=== PATIENT | male | born 1990 | race Caucasian/White ===

== ENCOUNTER 2017-12-21 21:55 | Inpatient (IN) | payer MEDICAID ==
[~2017-12-21] VITALS: Ht 167.6 cm; Wt 98.0 kg
[2017-12-22] MEDS ORDERED: VANCOMYCIN 1 G PREMIX 200 ML IV ONE (00:45)
[2017-12-22] MEDS ORDERED: SODIUM CHLORIDE 0.9% 1,000 ML IV ONE (00:45)
[2017-12-22] MEDS ORDERED: KETOROLAC 30MG/ML VIAL IV ONE (00:45)
[2017-12-22 01:13] LABS: BASOPHILS % 0.6 % (0.0-2.0); EOSINOPHILS % 2.7 % (0.0-5.0); HEMATOCRIT. 38.2 % (42.0-52.0); HEMOGLOBIN. 12.9 g/dL (14.0-18.0); LYMPHOCYTES % 24.2 % (20.0-50.0); MEAN CORPUSCULAR HEMOGLOBIN 31.1 pg (28.0-32.0); MEAN CORPUSCULAR VOLUME 91.8 fL (80.0-94.0); MEAN PLATELET VOLUME 7.3 fl (7.4-10.4); MONOCYTES % 11.1 % (2.0-8.0); NEUTROPHILS % 61.4 % (40.0-76.0); PLATELET 379 x1000/uL (130-400); RED BLOOD CELL COUNT 4.16 mill/uL (4.7-6.1); RED CELL DISTRIBUTION WIDTH 13.4 % (11.6-14.6)
[2017-12-22 01:22] LABS: INR 0.9; PROTHROMBIN TIME 9.9 sec (9.4-11.6)
[2017-12-22 01:29] LABS: CHLORIDE 105 mEq/L (98-107)
[2017-12-22] MEDS ORDERED: MORPHINE SULFATE 4 MG/ML CPJ (NOT FOR IM USE) IV ONE ×2 (02:00→04:30)
[2017-12-22 08:25] VITALS: BP 108/71
[2017-12-22] MEDS ORDERED: GABA-290 PO (10:24)
[2017-12-22 10:25] VITALS: BP 108/71
[2017-12-22 12:00] VITALS: BP 115/74
[2017-12-22] MEDS ORDERED: ACETAMINOPHEN 325MG TABLET PO PRN (12:30)
[2017-12-22] MEDS ORDERED: ONDANSETRON HCL 4MG/2ML INJ IV PRN (12:30)
[2017-12-22] MEDS ORDERED: CLONIDINE 0.1MG TABLET PO PRN (12:30)
[2017-12-22] MEDS ORDERED: IPRATROPIUM/ALBUTEROL 0.5-3(2.5)MG/3ML NEB INH PRN (12:30)
[2017-12-22] MEDS ORDERED: VANCOMYCIN 1 G PREMIX 200 ML IV SCH (12:30)
[2017-12-22] MEDS ORDERED: MEDICATION NOT ON FORMULARY EA (Gabapentin 1 TAB) PO SCH (13:00)
[2017-12-22] MEDS: HYDROCODONE/ACETAMINOPHEN 5/325MG TABLET PO PRN ×2 (13:25→20:28)
[2017-12-22] MEDS: GABAPENTIN 300MG CAPSULE PO SCH ×2 (13:25→17:43)
[2017-12-22] MEDS ORDERED: VANCOMYCIN 1,000 MG in DEXT 5% WATER 250 ML IV SCH (14:30)
[2017-12-22] MEDS ORDERED: PNEUMOCOCCAL 23-VAL P-SAC VAC 0.5 ML IM ONE (15:30)
[2017-12-22] MEDS ORDERED: INFLUENZA VIRUS VACCINE(AFLURIA) 0.5ML SYR IM ONE (15:30)
[2017-12-22] MEDS: VANCOMYCIN 1,000 MG in DEXT 5% WATER 250 ML IV SCH (15:58)
[2017-12-22 16:00] VITALS: BP 118/71
[2017-12-22] MEDS ORDERED: GABAPENTIN 300MG CAPSULE PO SCH (17:00)
[2017-12-22 20:00] VITALS: BP 123/86
[2017-12-22] MEDS: MORPHINE SULFATE 4 MG/ML CPJ (NOT FOR IM USE) IV PRN (23:13)
[2017-12-23] VITALS: BP 132/85
[2017-12-23] MEDS: VANCOMYCIN 1,000 MG in DEXT 5% WATER 250 ML IV SCH (02:16)
[2017-12-23 04:00] VITALS: BP 117/71
[2017-12-23] MEDS: MORPHINE SULFATE 4 MG/ML CPJ (NOT FOR IM USE) IV PRN ×3 (04:15→22:12)
[2017-12-23 05:46] LABS: BASOPHILS % 0.6 % (0.0-2.0); EOSINOPHILS % 2.7 % (0.0-5.0); HEMOGLOBIN. 13.8 g/dL (14.0-18.0); LYMPHOCYTES % 22.7 % (20.0-50.0); MEAN CORPUSCULAR HEMOGLOBIN 31.6 pg (28.0-32.0); MEAN CORPUSCULAR VOLUME 91.3 fL (80.0-94.0); MEAN PLATELET VOLUME 7.4 fl (7.4-10.4); PLATELET 392 x1000/uL (130-400); RED BLOOD CELL COUNT 4.38 mill/uL (4.7-6.1); RED CELL DISTRIBUTION WIDTH 13.1 % (11.6-14.6)
[2017-12-23 06:28] LABS: CHLORIDE 102 mEq/L (98-107); HDL CHOLESTEROL 40 mg/dL (40-59); LDL CHOLESTEROL 103 mg/dL (5-100)
[2017-12-23 08:00] VITALS: BP 110/79
[2017-12-23] MEDS: GABAPENTIN 300MG CAPSULE PO SCH ×3 (10:05→18:00)
[2017-12-23 12:00] VITALS: BP 99/63
[2017-12-23] MEDS ORDERED: LIDOCAINE HCL 1%/EPI 1:200,000 30 ML VIAL IJ NR (15:00)
[2017-12-23 16:00] VITALS: BP 128/97
[2017-12-23] MEDS: HYDROCODONE/ACETAMINOPHEN 5/325MG TABLET PO PRN (18:00)
[2017-12-23 20:00] VITALS: BP 114/78
[2017-12-23] MEDS: MUPIROCIN 2% OINT 22GM TOP SCH (20:57)
[2017-12-23] MEDS: CHLORHEXIDINE GLUCONATE 4% EXTERNAL USE TOP SCH (20:57)
[2017-12-23] MEDS: DIPHENHYDRAMINE 50MG/ML VIAL IV PRN (22:10)
[2017-12-24] VITALS: BP 136/83
[2017-12-24] MEDS: VANCOMYCIN 1,000 MG in DEXT 5% WATER 250 ML IV SCH (03:23)
[2017-12-24 04:00] VITALS: BP 123/79
[2017-12-24] MEDS: MORPHINE SULFATE 4 MG/ML CPJ (NOT FOR IM USE) IV PRN (04:54)
[2017-12-24] MEDS: DIPHENHYDRAMINE 50MG/ML VIAL IV PRN (05:35)
[2017-12-24 06:30] LABS: HEMATOCRIT. 42.8 % (42.0-52.0); HEMOGLOBIN. 14.6 g/dL (14.0-18.0); MEAN CORPUSCULAR HEMOGLOBIN 31.5 pg (28.0-32.0); MEAN CORPUSCULAR VOLUME 92.1 fL (80.0-94.0); MEAN PLATELET VOLUME 7.2 fl (7.4-10.4); PLATELET 426 x1000/uL (130-400); RED BLOOD CELL COUNT 4.65 mill/uL (4.7-6.1); RED CELL DISTRIBUTION WIDTH 13.3 % (11.6-14.6)
[2017-12-24 06:55] LABS: CHLORIDE 101 mEq/L (98-107)
[2017-12-24 08:00] VITALS: BP 118/74
[2017-12-24] MEDS: GABAPENTIN 300MG CAPSULE PO SCH ×2 (09:39→13:21)
[2017-12-24] MEDS: MUPIROCIN 2% OINT 22GM TOP SCH (11:06)
[2017-12-24] MEDS: CHLORHEXIDINE GLUCONATE 4% EXTERNAL USE TOP SCH (11:06)
[2017-12-24 12:00] VITALS: BP 120/90
[2017-12-24] MEDS ORDERED: VANCOMYCIN 1 G PREMIX 200 ML IV SCH (12:00)
[2017-12-24 12:50] LABS: PLATELET ESTIMATE SLIGHTLY INCREASED
[2017-12-24] MEDS: HYDROCODONE/ACETAMINOPHEN 5/325MG TABLET PO PRN (13:08)
[2017-12-24 13:59] VITALS: BP 120/90
[2017-12-24 16:00] VITALS: BP 133/90
== END 2017-12-24 16:45 | disposition home or self-care (01) | DRG 364 ==
LOC: ER 21:55 → 8WST 12-22 01:53 → EDBEDREQTM 12-22 01:55 → EDBEDREQ 12-22 01:55 → EDBEDREQSVC 12-22 01:55 → CANRESERV 12-22 05:01 → ENRESERV 12-22 05:01
PROVIDERS: ADMIT Internal Medicine; ATTEND Internal Medicine
PROC: 0J9N0ZZ Drainage of Right Lower Leg Subcutaneous Tissue and Fascia, Open Approach (ICD-10-PCS; principal; 2017-12-23)
DX: L02.415 Cutaneous abscess of right lower limb (principal); G62.9 Polyneuropathy, unspecified; R79.89 Other specified abnormal findings of blood chemistry; N18.9 Chronic kidney disease, unspecified; L03.115 Cellulitis of right lower limb; Z79.899 Other long term (current) drug therapy
CPT/HCPCS: 36415; 80048; 80061; 80202; 83605; 87070; 87077; 90686; 90732; 96365; 96366; 96375; 96376; 99285; C1893; J1200; J1885; J2270; J3370; J7030; J7040; J7060

== ENCOUNTER 2018-12-29 15:06 | Emergency (ER) | payer MEDICAID ==
[~2018-12-29] VITALS: Ht 167.6 cm; Wt 107.0 kg
[~2018-12-29 15:06] MED LIST: GABA-290 PO
[2018-12-29] MEDS ORDERED: TETANUS, DIPHTHERIA, PERTUSSIS VAC/PF 0.5ML (>7YR OLD) IM ONE (17:00)
[2018-12-29] MEDS ORDERED: LIDOCAINE HCL 1% 20ML VIAL (Pyxis) INJ INFIL ONE (17:00)
[2018-12-29] MEDS ORDERED: BACITRACIN ZINC OINT UDPKT TOP ONE (17:00)
[2018-12-29 18:21] VITALS: BP 110/70
== END 2018-12-29 18:23 | disposition home or self-care (01) ==
LOC: ER 16:50
DX: S61.213A Laceration without foreign body of left middle finger without damage to nail, initial encounter (principal); F12.10 Cannabis abuse, uncomplicated; W26.0XXA Contact with knife, initial encounter; Y93.89 Activity, other specified; Y92.89 Other specified places as the place of occurrence of the external cause; Y99.8 Other external cause status; Z90.49 Acquired absence of other specified parts of digestive tract
CPT/HCPCS: 12001; 90471; 90715; 99283; A4217; J3490; Z7610

== ENCOUNTER 2019-01-12 17:32 | Emergency (ER) | payer MEDICAID ==
[~2019-01-12] VITALS: Ht 167.6 cm; Wt 107.0 kg
[2019-01-12 18:06] VITALS: BP 112/70
== END 2019-01-12 19:23 | disposition left against medical advice (07) ==
LOC: ER 17:32
DX: Z53.21 Procedure and treatment not carried out due to patient leaving prior to being seen by health care provider (principal)

== ENCOUNTER 2019-01-13 09:57 | Emergency (ER) | payer MEDICAID, OTHER ==
[~2019-01-13] VITALS: Ht 160 cm; Wt 107.0 kg
[2019-01-13 10:08] VITALS: BP 115/85
== END 2019-01-13 11:59 | disposition home or self-care (01) ==
LOC: ER 11:41
DX: Z48.00 Encounter for change or removal of nonsurgical wound dressing (principal)
CPT/HCPCS: 99281; Z7610